=== PATIENT | male | born 1975 | race Caucasian/White ===

== ENCOUNTER 2020-01-19 14:02 | Emergency (ER) | payer OTHER, SELFPAY ==
[2020-01-19 14:55] VITALS: BP 130/83; PULSE 78; RESP 19; TEMP 36.9; O2SAT 98; BMI 26.5
--- NOTE | 2020-01-19 15:17 | HMH.EDUTC ---
[place] Disposition Clinical Impression: Viral syndrome Disposition: Home, Self-Care Condition on Discharge: Good Instructions: DI for Viral Syndrome, Preventing the Spread of Coronavirus Discharge Instructions Additional Instructions: Drink plenty of fluids. Take tylenol for pain or fever. Take the medications as directed. Follow up with your regular doctor. GO TO THE ER FOR ANY WORSENING SYMPTOMS Prescriptions: Azithromycin [Z-Raudel 250mg Tab*] 250 mg PO UD DOSE PK #6 tab Transmission Status: Received by [facility] Referrals: PCP,No [Primary Care Provider] - Forms: Work/School Release Time of Disposition: 15:31 Medical Decision Making - Medical Records Medical records reviewed: No: I reviewed the patient's medical records. - Jimbo Inquiry Pt receiving controlled substance: No Vital Signs: 01/19/20 14:55 01/19/20 15:35 Temperature 98.4 F 98.4 F Temperature Source Oral Pulse Rate 78 Pulse Rate [Right Brachial] 78 Respiratory Rate 19 19 Blood Pressure 130/83 Blood Pressure [Right Arm] 130/83 Blood Pressure Mean [Right Arm] 98 Blood Pressure Source [Right Arm] Automatic Cuff Blood Pressure Position [Right Arm] Sitting 02 Sat by Pulse Oximetry 98 Oxygen Delivery Method Room Air - Lab Data Lab results reviewed: Yes: I reviewed the patient's lab results. Lab Results 01/19/20 14:53: Influenza Type A Ag Negative, Influenza Type B Ag Negative [place] HPI - General Stated complaint: flu like symptoms Time Seen by Provider: 01/19/20 15:17 Mode of Arrival: Ambulatory Source of Information: Patient Limitations: No Limitations Description of Symptoms (Recalled from Triage Doc. by RN): PATIENT C/O HEADACHE, BODY ACHES, FEVER, AND CHILLS X 2 DAYS HEENT Symptoms (Recalled from RN notes): Yes Resp Symptoms (Recalled from RN notes): No Skin Symptoms (Recalled from RN notes): No MS Symptoms (Recalled from RN notes): Yes Functional Status (Recalled from RN notes): WNL - History of Present Illness Provider Complaint: He states that since yesteday he has had body aches, chilling, fever up to 101, dry cough and generally feeling very bad. He works at a [employer] - Related Data Home Medications Medication Instructions Recorded Confirmed Etodolac [Etodolac 400mg Tab] 400 mg PO BID 01/19/20 01/19/20 Fluoxetine HCl [Prozac] 20 mg PO DAILY 01/19/20 01/19/20 Prazosin HCl [Minipress] 2 mg PO DAILY 01/19/20 01/19/20 Zolpidem Tartrate [Ambien 10mg 10 mg PO HSP PRN 01/19/20 01/19/20 tablet] buPROPion HCL [Wellbutrin XL] 300 mg PO DAILY 01/19/20 01/19/20 Previous Rx's Medication Instructions Recorded Azithromycin [Z-Raudel 250mg Tab*] 250 mg PO UD DOSE PK #6 tab 01/19/20 Allergies Allergy/AdvReac Type Severity Reaction Status Date / Time No Known Allergies Allergy Unverified 02/20/17 15:22 - Worker's Comp Is this a Worker's Comp case?: No H History - Hepatitis A Screen Drug use history?: No High risk sexual behaviors?: No History of sexually transmitted infection?: No Currently employed?: No Childcare worker?: No Do you have indoor plumbing?: Yes Do you have electricity?: Yes Attestation statement:: This patient has been screened for Hepatitis A risk factors. I have reviewed the patient's past medical history: Yes - Social History Alcohol Intake: never Occupational Status: other ROS Obtained: Yes All systems reviewed & no additional complaints - Constitutional Constitutional: Reports system reviewed and no additional complaints, except as docu - Eyes Eyes: Reports system reviewed and no additional complaints, except as docu - ENT Ears, Nose, Mouth, and Throat: Reports system reviewed and no additional complaints, except as docu - Cardiovascular Cardiovascular: Reports system reviewed and no additional complaints, except as docu - Respiratory Respiratory: Yes system reviewed and no additional complaints, except as docu
[2020-01-19 15:33] LABS: UTC Influenza A Antigen Negative (Negative); UTC Influenza B Antigen Negative (Negative)
[2020-01-19 15:35] VITALS: BP 130/83; PULSE 78; RESP 19; TEMP 36.9; O2SAT 98
== END 2020-01-19 15:38 | disposition home or self-care (01) ==
PROVIDERS: Emergency Provider Nurse Practitioner Family
DX: U07.1 COVID-19 (principal)
CPT/HCPCS: 87804; 99201; U0003

== ENCOUNTER 2020-02-05 17:31 | Emergency (ER) | payer OTHER, SELFPAY ==
[2020-02-05 17:43] VITALS: BP 183/94; PULSE 87; RESP 16; TEMP 36.9; O2SAT 98; BMI 27.3
--- NOTE | 2020-02-05 17:48 | HMH.EDUTC ---
[facility] [place]: Cellulitis Qualifiers: Site of cellulitis: extremity Site of cellulitis of extremity: lower extremity Laterality: right Qualified Code(s): L03.115 - Cellulitis of right lower limb Disposition: Home, Self-Care Condition on Discharge: Good Instructions: Trimethoprim/Sulfamethoxazole (Alternative Therapy), Cellulitis, Cephalexin Additional Instructions: *Start antibiotic(s) immediately and be sure to take as ordered for the FULL length of time although you may be feeling better or start to see improvement in the next 24-48 hours *Monitor closely. Outlined redness so that you can monitor easier. Follow up immediately for new or worsening symptoms including but not limited to redness, swelling, streaking from site fever or chills. *Warm compress 15 minutes 3-4 times day *Never squeeze or pop these on your own. Seek immediate medical attention next time this occurs *Monitor Temp. Tylenol every 4 hours as needed and ibuprofen every 6 hours as needed (as long as your primary care doctor has told you that it is ok to take both. For fever, aches, pain. ER if no less that 101 despite Tylenol and ibuprofen Follow up with your family doctor/primary care physician in the next 48-72 hours if no improvement Return if needed Follow up immediately with your Family Doctor if no improvement or any worsening of symptoms Straight to ER if any life threatening symptoms Prescriptions: Sulfamethoxazole/Trimethoprim [Bactrim DS tablet] 1 each PO BID 10 Days #20 tab Transmission Status: Pending to [facility] #[id number] cephALEXin [Keflex 500mg Cap] 500 mg PO Q6H 10 Days #40 cap Transmission Status: Pending to [facility] #[id number] Referrals: PCP,No [Primary Care Provider] - As needed Time of Disposition: 17:55 Medical Decision Making - Jimbo Inquiry Pt receiving controlled substance: No Jimbo was queried for this patient: No Vital Signs: 02/05/20 17:43 Temperature 98.4 F Temperature Source Oral Pulse Rate [Right] 87 Respiratory Rate 16 Blood Pressure [Right Arm] 183/94 H Blood Pressure Mean [Right Arm] 123 Blood Pressure Source [Right Arm] Automatic Cuff Blood Pressure Position [Right Arm] Sitting 02 Sat by Pulse Oximetry 98 Oxygen Delivery Method Room Air Medical Decision Narrative: Medication discussed with pharmacy [facility] [place] - General Stated complaint: r Leg pain Time Seen by Provider: 02/05/20 17:48 Mode of Arrival: Ambulatory Source of Information: Patient Limitations: No Limitations Description of Symptoms (Recalled from Triage Doc. by RN): pt was injecting steroids into his leg and now his thigh is swollen, red and hot to touch for 2 days HEENT Symptoms (Recalled from RN notes): No Resp Symptoms (Recalled from RN notes): No Skin Symptoms (Recalled from RN notes): Yes (swollen thigh) MS Symptoms (Recalled from RN notes): No Functional Status (Recalled from RN notes): na - History of Present Illness Provider Complaint: Patient states that he had noticed about 2 days ago after injecting in his right upper thigh area that it was looking red warm and swollen States that it has continued to get worse His told him it looked like cellulitis so he come in to get it checked - Related Data Home Medications Medication Instructions Recorded Confirmed Etodolac [Etodolac 400mg Tab] 400 mg PO BID 01/19/20 01/19/20 Fluoxetine HCl [Prozac] 20 mg PO DAILY 01/19/20 01/19/20 Prazosin HCl [Minipress] 2 mg PO DAILY 01/19/20 01/19/20 Zolpidem Tartrate [Ambien 10mg 10 mg PO HSP PRN 01/19/20 01/19/20 tablet] buPROPion HCL [Wellbutrin XL] 300 mg PO DAILY 01/19/20 01/19/20 Previous Rx's Medication Instructions Recorded Azithromycin [Z-Raudel 250mg Tab*] 250 mg PO UD DOSE PK #6 tab 01/19/20 Sulfamethoxazole/Trimethoprim 1 each PO BID 10 Days #20 tab 02/05/20 [Bactrim DS tablet] cephALEXin [Keflex 500mg Cap] 500 mg PO Q6H 10 Days #40 cap 02/05/20 Allergies Allergy/
[2020-02-05 18:00] VITALS: BP 180/90; PULSE 87; RESP 16; TEMP 36.6; O2SAT 98
== END 2020-02-05 18:15 | disposition home or self-care (01) ==
PROVIDERS: Emergency Provider Nurse Practitioner
DX: L03.115 Cellulitis of right lower limb (principal)
CPT/HCPCS: 99201

== ENCOUNTER 2020-03-26 12:47 | Emergency (ER) | payer OTHER, SELFPAY ==
[2020-03-26 12:47] VITALS: BP 145/98; PULSE 82; PULSE 83; RESP 16; RESP 20; TEMP 36.6; O2SAT 96; O2SAT 98; BMI 26.9
[2020-03-26 12:50] VITALS: BP 146/84; PULSE 83; RESP 20; O2SAT 96; BMI 26.9
--- NOTE | 2020-03-26 13:03 | ED_ITS ---
[facility] [place]ression: Head injury Qualifiers: Encounter type: initial encounter Qualified Code(s): S09.90XA - Unspecified injury of head, initial encounter Disposition: Still a Patient Condition on Discharge: Undetermined Referrals: PCP,No [Primary Care Provider] - Time of Disposition: 13:05 Medical Decision Making - Jimbo Inquiry Pt receiving controlled substance: No Medical Decision Narrative: Patient is my [id number], which makes me uncomfortable in evaluation and yariel atment of possible head injury. Sent to ER for further work up. [facility] [place] General Stated complaint: nausea, headache Time Seen by Provider: 03/26/20 13:03 - History of Present Illness Provider Complaint: Patient was in the shower this morning and passed out. Has had nausea, headache since that time. He did drink alcohol last night and isn't sure if he is feeling poorly from a hangover versus hitting is head/fainting. - Related Data Home Medications Medication Instructions Recorded Confirmed Etodolac [Etodolac 400mg Tab] 400 mg PO BID 01/19/20 01/19/20 Fluoxetine HCl [Prozac] 20 mg PO DAILY 01/19/20 01/19/20 Prazosin HCl [Minipress] 2 mg PO DAILY 01/19/20 01/19/20 Zolpidem Tartrate [Ambien 10mg 10 mg PO HSP PRN 01/19/20 01/19/20 tablet] buPROPion HCL [Wellbutrin XL] 300 mg PO DAILY 01/19/20 01/19/20 Previous Rx's Medication Instructions Recorded Azithromycin [Z-Raudel 250mg Tab*] 250 mg PO UD DOSE PK #6 tab 01/19/20 Sulfamethoxazole/Trimethoprim 1 each PO BID 10 Days #20 tab 02/05/20 [Bactrim DS tablet] cephALEXin [Keflex 500mg Cap] 500 mg PO Q6H 10 Days #40 cap 02/05/20 Allergies Allergy/AdvReac Type Severity Reaction Status Date / Time No Known Allergies Allergy Unverified 02/20/17 15:22 [facility] History - Hepatitis A Screen Attestation statement:: This patient has been screened for Hepatitis A risk factors. - Social History Alcohol Intake: never Occupational Status: other ROS Obtained: Yes All systems reviewed & no additional complaints - Neurologic Neurologic: Reports headache(s), Reports syncope Physical Exam - General General appearance: alert, in no apparent distress - Respiratory Respiratory exam: Present: normal lung sounds bilaterally - Cardiovascular Cardiovascular exam: Present: regular rate, normal rhythm - Neurological Exam Neurological exam: Present: alert, oriented X3
--- NOTE | 2020-03-26 13:05 | PC.NURSE ---
PATIENT SENT TO ER PER Gaby ROMAN FOR FURTHER EVALUATION
--- NOTE | 2020-03-26 13:12 | ECG_ITS ---
APPROVED REPORT Exam: Resting ECG HR:76 bpm ECG Measurements Heart Rate 76 AXES NE 170 P 79 QRSd 92 QRS -17 QT 368 T 64 QTc 414 Conclusion Normal sinus rhythm Possible Left atrial enlargement RSR' or QR pattern in V1 suggests right ventricular conduction delay Borderline ECG Electronically signed by : Kvng Velazquez, 03/26/2020 18:00:40
--- NOTE | 2020-03-26 13:14 | HMH.EDGENADL ---
[place] Disposition Clinical Impression: Dehydration Disposition: Home, Self-Care Condition on Discharge: Good Instructions: DI for Syncope in Adults (Fainting) Additional Instructions: Drink plenty of clear fluids. Please try to avoid excessive alcohol intake over the next several days. Return immediately if any new or worsening symptoms. Referrals: PCP,No [Primary Care Provider] - - Critical Care Critical Care Time: No Attestation: On 03/26/20, the high probability of a clinically significant, sudden or life threatening deterioration of the following system(s) required my full and direct attention, intervention and personal management. The time I documented below is in addition to time spent performing reported procedures but includes the following listed in this critical care notation. Medical Decision Making - Medical Records Medical records reviewed: Yes: I reviewed the patient's medical records. - Jimbo Inquiry Pt receiving controlled substance: No Vital Signs: 03/26/20 12:47 03/26/20 12:50 03/26/20 13:17 Temperature 98 F Temperature Source Oral Pulse Rate [Orthostatic Lying] Pulse Rate [Orthostatic Standing] Pulse Rate [Right Brachial] 83 83 92 H Respiratory Rate 20 20 18 Blood Pressure [Orthostatic Lying] Blood Pressure [Orthostatic Standing] Blood Pressure [Right Arm] 145/98 H 146/84 H 132/93 H Blood Pressure Mean [Right Arm] 113 104 106 Blood Pressure Source [Right Arm] Automatic Cuff Automatic Cuff Automatic Cuff Blood Pressure Position [Right Arm] Supine Sitting Supine 02 Sat by Pulse Oximetry 96 96 95 Oxygen Delivery Method Room Air Room Air Room Air 03/26/20 13:30 03/26/20 13:34 Temperature Temperature Source Pulse Rate [Orthostatic Lying] 82 Pulse Rate [Orthostatic Standing] 98 H Pulse Rate [Right Brachial] 76 Respiratory Rate 20 Blood Pressure [Orthostatic Lying] 136/94 H Blood Pressure [Orthostatic Standing] 132/93 H Blood Pressure [Right Arm] 125/83 Blood Pressure Mean [Right Arm] 97 Blood Pressure Source [Right Arm] Automatic Cuff Blood Pressure Position [Right Arm] Supine 02 Sat by Pulse Oximetry 96 Oxygen Delivery Method Room Air - Lab Data Lab Results 03/26/20 13:20: WBC 5.0, RBC 5.89, Hgb 18.6 H*, Hct 54.7 H, MCV 92.9, MCH 31.5 H, MCHC 33.9, RDW 13.3, Plt Count 241, MPV 7.3 L, Neut % (Auto) 63.6, Lymph % (Auto) 28.7, Buchanan % (Auto) 6.0, Eos % (Auto) 0.6, Baso % (Auto) 1.1, Neut # (Auto) 3.2, Lymph # (Auto) 1.4, [place]anan # (Auto) 0.3, Eos # (Auto) 0.0, Baso # (Auto) 0.1 03/26/20 13:20: Sodium 136, Potassium 4.6, Chloride 103, Carbon Dioxide 30, Anion Gap 7.6, BUN 21 H, Creatinine 1.00, Estimated Creat Clear 111, Estimated GFR 82, Est GFR ( Amer) 99, Glucose 98, Calcium 10.1, Magnesium 2.1, Total Bilirubin 0.6, AST 54, ALT 39, Alkaline Phosphatase 49, Troponin I < 0.01, Total Protein 7.9, Albumin 4.9, Globulin 3.0, Albumin/Globulin Ratio 1.6 Result diagrams: 03/26/20 13:20 03/26/20 13:20 Orders (Tests/Meds): ED MEDICATIONS Discontinued Medications Generic Name Dose Route Start Last Admin Trade Name Freq PRN Reason Stop Dose Admin Lactated Ringer's 1,000 mls @ 999 mls/hr 03/26/20 13:30 03/26/20 13:33 Lactated Ringer's 1000 Ml Bag IV 03/26/20 14:30 999 mls/hr .Q1H1M URIAH Administration Ondansetron HCl 4 mg 03/26/20 13:32 03/26/20 13:33 Ondansetron 4mg/2ml Vial IV 03/26/20 13:33 4 mg ONCE ONE Administration ORDERS Category Date Time Status Troponin I Q3H Lab 03/26/20 16:30 Ordered Troponin I Q3H Lab 03/26/20 19:30 Ordered Medical Decision Narrative: Patient presents after syncopal episode. At this time, he states he feels very hung over after drinking alcohol yesterday evening. Hemodynamically stable on arrival. Patient will be hydrated with 1 L of fluids. Differential diagnosis does include dysrhythmia versus electrolyte derangement versus hematologic derangement. Patient with no neurol
[2020-03-26 13:17] VITALS: BP 132/93; PULSE 92; RESP 18; O2SAT 95
[2020-03-26 13:30] VITALS: BP 125/83; PULSE 76; RESP 20; O2SAT 96
[2020-03-26 13:34] VITALS: BP 132/93; BP 136/94; PULSE 82; PULSE 98
[2020-03-26 13:41] LABS: Basophils # 0.1 K/mm3 (0-0.2); Basophils % 1.1 % (0.1-2.0); Eosinophils % 0.6 % (0.1-12.0); Hematocrit 54.7 % (42.0-52.0); Lymphocytes # 1.4 K/mm3 (0.7-4.5); Lymphocytes % 28.7 % (10-50); Mean Corpuscular HGB Conc 33.9 g/dL (31.8-35.4); Mean Corpuscular Hemoglobin 31.5 pg (27.0-31.2); Mean Corpuscular Volume 92.9 fl (80-94); Mean Platelet Volume 7.3 fl (7.4-10.4); Monocytes # 0.3 K/mm3 (0.1-1.0); Neutrophils # 3.2 K/mm3 (1.8-7.8); Neutrophils % 63.6 % (37.0-80.0); Platelet Count 241 K/mm3 (142-424); Red Blood Count 5.89 M/mm3 (4.60-6.20); Red Cell Distribution Width 13.3 % (11.5-17.5)
[2020-03-26 13:43] LABS: Hemoglobin 18.6 g/dL (14.1-18.0)
[2020-03-26 13:46] LABS: Chloride 103 mmol/L (98-107); Potassium 4.6 mmoL/L (3.5-5.1); Sodium 136 mmol/L (136-145)
[2020-03-26 13:48] LABS: Alanine Aminotransferase 39 U/L (12-78); Aspartate Amino Transferase 54 U/L (17-59); Blood Urea Nitrogen 21 mg/dl (9-20); Creatinine Clearance Estimated 111 mL/min (50-200); Estimated Glomerular Filt Rate 82 ml/min (>60); GFR (African American) 99 ML/MIN (>60)
[2020-03-26 13:49] LABS: Albumin Level 4.9 g/dl (3.5-5.0); Albumin/Globulin Ratio 1.6 (1.1-1.8); Alkaline Phosphatase 49 U/L (38-126); Anion Gap 7.6 mEq/L (5-15); Bilirubin,Total 0.6 mg/dl (0.2-1.3); Calcium 10.1 mg/dl (8.4-10.2); Carbon Dioxide 30 mmol/L (22.0-30.0); Glucose 98 mg/dl (74-100); Magnesium 2.1 mg/dl (1.6-2.3); Total Protein,Serum 7.9 g/dl (6.3-8.2)
[2020-03-26 14:02] LABS: Troponin I < 0.01 ng/ml (0.00-0.034)
[2020-03-26 15:10] VITALS: BP 136/94; PULSE 98; RESP 20; TEMP 36.7; O2SAT 96
== END 2020-03-26 15:15 | disposition home or self-care (01) ==
LOC: UTC 13:06 → ER 13:11
PROVIDERS: Emergency Provider Emergency Medicine
DX: E86.0 Dehydration (principal); F10.10 Alcohol abuse, uncomplicated; R11.0 Nausea
CPT/HCPCS: 80053; 83735; 84484; 85025; 93005; 96365; 96366; 99283; J2405